=== PATIENT | female | born 1955 | race Caucasian/White ===

== ENCOUNTER 2017-05-23 12:30 | Emergency (ER) | payer OTHER ==
[~2017-05-23] VITALS: Ht 157.5 cm; Wt 74.8 kg
[~2017-05-23 12:30] MED LIST: MELO7.5T12; SERT25TA PO
[2017-05-23] MEDS ORDERED: predniSONE 50 MG TABLET PO ONE (13:15)
--- NOTE | 2017-05-23 13:56 | NUR ---
Patient discharged to home in stable conditon. Written and verbal after care instructions given to patient and spouse. Patient and family verbalized understanding of instructions.
[2017-05-23] MEDS ORDERED: predniSONE 50 MG TABLET ONE (14:05)
== END 2017-05-23 13:57 | disposition home or self-care (01) ==
LOC: ER 12:30
DX: J45.909 Unspecified asthma, uncomplicated (principal); J11.1 Influenza due to unidentified influenza virus with other respiratory manifestations
CPT/HCPCS: 71045; A4663; J7512

== ENCOUNTER 2018-02-15 06:13 | Inpatient (IN) | payer OTHER ==
[~2018-02-15] VITALS: Ht 157.5 cm; Wt 77.1 kg
[2018-02-15] MEDS ORDERED: ALBUTEROL SULF (06:26)
[2018-02-15] MEDS ORDERED: ONDANSETRON 4 MG/2 ML VIAL IV ONE (06:30)
[2018-02-15] MEDS ORDERED: IV NORMAL SALINE 1000 ML BAG IV ONE (06:30)
[2018-02-15] MEDS ORDERED: MORPHINE SULFATE 2 MG/1 ML DISP.SYRIN IV ONE (06:30)
[2018-02-15] MEDS ORDERED: MORPHINE SULFATE 4 MG/1 ML DISP.SYRIN ONE (06:37)
[2018-02-15] MEDS ORDERED: ONDANSETRON 4 MG/2 ML VIAL ONE (06:37)
[2018-02-15 06:52] LABS: BASOPHILS # (AUTO) 0.1 K/uL (0.0-8.0); BASOPHILS % (AUTO) 0.9 % (0.0-2.0); EOSINOPHILS # (AUTO) 0.1 K/uL (0.0-0.7); EOSINOPHILS % (AUTO) 1.2 % (0.0-7.0); HEMATOCRIT 42.2 % (31.2-41.9); LYMPHOCYTES # (AUTO) 4.3 K/uL (20.0-40.0); LYMPHOCYTES % (AUTO) 48.4 % (20.5-51.5); MEAN CORPUSCULAR HEMOGLOBIN 28.7 uug (24.7-32.8); MEAN CORPUSCULAR HGB CONC 33 g/dL (32.3-35.6); MEAN CORPUSCULAR VOLUME 86.6 fL (75.5-95.3); MONOCYTES # (AUTO) 0.5 K/uL (2.0-10.0); MONOCYTES % (AUTO) 6.1 % (0.0-11.0); NEUTROPHILS # (AUTO) 3.8 K/uL (1.8-8.9); NEUTROPHILS % (AUTO) 43.4 % (38.5-71.5); PLATELET COUNT (AUTO) 385 K/uL (179-408); RED BLOOD CELL COUNT(AUTO) 4.87 MIL/uL (3.63-4.92); WHITE BLOOD COUNT (AUTO) 8.9 K/uL (3.8-11.8)
[2018-02-15 06:54] LABS: POTASSIUM 3.9 mmol/L (3.5-5.1)
[2018-02-15 07:06] LABS: BILIRUBIN,DIRECT 0.1 mg/dL (0.0-0.2); BILIRUBIN,TOTAL 0.4 mg/dL (0.2-1.0)
[2018-02-15] MEDS ORDERED: KETOROLAC TROMETHAMINE 30 MG INJ ONE ×2 (07:06→09:35)
[2018-02-15] MEDS ORDERED: HYDROMORPHONE 2 MG/1 ML DISP.SYRIN ONE ×2 (07:06→09:34)
[2018-02-15] MEDS ORDERED: HYDROMORPHONE 1 MG/1 ML DISP.SYRIN IV ONE ×2 (07:15→09:30)
[2018-02-15] MEDS ORDERED: KETOROLAC TROMETHAMINE 30 MG INJ IVP ONE (07:15)
[2018-02-15] MEDS ORDERED: TAMSULOSIN HCL 0.4 MG CAP.SR.24H PO ONE (08:45)
[2018-02-15 08:49] LABS: *BILIRUBIN,URIN NEGATIVE (NEGATIVE); *BLOOD, URINE 3+ (NEGATIVE); *CLARITY,URINE CLEAR (CLEAR); *COLOR,URINE YELLOW (YELLOW); *KETONES,URINE NEGATIVE (NEGATIVE); *PROTEIN,URINE NEGATIVE (NEGATIVE); *UROBILINOGEN,URINE 0.2 E.U./dl (NORMAL); LEUKOCYTE ESTERASE ,URINE 1+ (NEGATIVE); NITRITE, URINE NEGATIVE (NEGATIVE); UGLUCOSE NEGATIVE (NEGATIVE)
[2018-02-15] MEDS ORDERED: TAMSULOSIN HCL 0.4 MG CAP.SR.24H ONE (08:51)
[2018-02-15 08:57] LABS: RBC,URINE 20-50 /HPF (0-3)
[2018-02-15 09:13] LABS: BACTERIA,URINE FEW /HPF (NONE SEEN); SQUAMOUS EPITHELIAL CELL,UR FEW /HPF (NONE SEEN)
[2018-02-15 09:14] LABS: MUCUS,URINE FEW /LPF (0-FEW)
[2018-02-15] MEDS ORDERED: KETOROLAC TROMETHAMINE 15 MG INJ IV ONE (09:30)
[2018-02-15] MEDS ORDERED: CEFTRIAXONE 1 G in IV DEXTROSE 5% 50 ML IV ONE (09:30)
[2018-02-15] MEDS ORDERED: CEFTRIAXONE 1 G VIAL ONE (09:34)
[2018-02-15 10:57] VITALS: BP 123/61
[2018-02-15] MEDS ORDERED: KETOROLAC TROMETHAMINE 15 MG INJ IVP PRN (13:30)
[2018-02-15] MEDS ORDERED: MAGNESIUM HYDROXIDE 30 ML LIQUID UDC PO PRN (13:30)
[2018-02-15] MEDS ORDERED: Z GUARD REMEDY PASTE 57 GM TUBE TOP PRN (13:30)
[2018-02-15] MEDS ORDERED: ONDANSETRON 4 MG/2 ML VIAL IV PRN (13:30)
[2018-02-15] MEDS ORDERED: HYDROCODONE/APAP 5-325MG TABLET PO PRN (13:30)
[2018-02-15] MEDS ORDERED: ACETAMINOPHEN 325 MG TABLET PO PRN (13:30)
[2018-02-15] MEDS ORDERED: ZOLPIDEM 5 MG TABLET PO PRN (13:30)
[2018-02-15] MEDS ORDERED: MELOXICAM 7.5 MG TABLET PO SCH (14:00)
[2018-02-15] MEDS: SERTRALINE HCL 100 MG TABLET PO SCH (14:18)
[2018-02-15] MEDS: IV NS 1000 ML 1,000 ML IV PRN (14:19)
[2018-02-15] MEDS: LOSARTAN POTASSIUM 25 MG TABLET PO SCH (14:19)
[2018-02-15 15:41] VITALS: BP 104/61
[2018-02-15 20:32] VITALS: BP 137/67
[2018-02-15] MEDS: TAMSULOSIN HCL 0.4 MG CAP.SR.24H PO SCH (20:43)
[2018-02-15] MEDS ORDERED: ENOXAPARIN SODIUM 40 MG/0.4 ML DISP.SYRIN SQ SCH (21:00)
[2018-02-15] MEDS: KETOROLAC TROMETHAMINE 15 MG INJ IVP SCH (22:37)
[2018-02-16 04:00] VITALS: BP 130/66
[2018-02-16] MEDS: IV NS 1000 ML 1,000 ML IV PRN (04:13)
[2018-02-16] MEDS ORDERED: CEFTRIAXONE 1 G VIAL IM SCH ×2 (07:00→09:00)
[2018-02-16 07:34] LABS: BASOPHILS % (AUTO) 0.3 % (0.0-2.0); EOSINOPHILS # (AUTO) 0.1 K/uL (0.0-0.7); LYMPHOCYTES # (AUTO) 2.6 K/uL (20.0-40.0); LYMPHOCYTES % (AUTO) 32.3 % (20.5-51.5); MEAN CORPUSCULAR HEMOGLOBIN 29.2 uug (24.7-32.8); MEAN CORPUSCULAR HGB CONC 34 g/dL (32.3-35.6); MEAN CORPUSCULAR VOLUME 86.5 fL (75.5-95.3); MONOCYTES # (AUTO) 0.6 K/uL (2.0-10.0); MONOCYTES % (AUTO) 7.4 % (0.0-11.0); NEUTROPHILS # (AUTO) 4.7 K/uL (1.8-8.9); RED BLOOD CELL COUNT(AUTO) 4.16 MIL/uL (3.63-4.92); WHITE BLOOD COUNT (AUTO) 7.9 K/uL (3.8-11.8)
[2018-02-16 07:43] LABS: CREATININE 0.9 mg/dL (0.6-1.3); MAGNESIUM 1.9 mg/dL (1.8-2.4); POTASSIUM 4.3 mmol/L (3.5-5.1)
[2018-02-16 07:47] LABS: HEMOGLOBIN 12.1 g/dL (10.9-14.3); PLATELET COUNT (AUTO) 273 K/uL (179-408)
[2018-02-16] MEDS: LOSARTAN POTASSIUM 25 MG TABLET PO SCH (08:35)
[2018-02-16] MEDS: TAMSULOSIN HCL 0.4 MG CAP.SR.24H PO SCH (08:35)
[2018-02-16] MEDS: SERTRALINE HCL 100 MG TABLET PO SCH (08:35)
[2018-02-16] MEDS: KETOROLAC TROMETHAMINE 15 MG INJ IVP SCH ×2 (08:36→13:11)
[2018-02-16] MEDS ORDERED: MELOXICAM 7.5 MG TABLET PO SCH ×2 (09:00)
[2018-02-16] MEDS ORDERED: CEFTRIAXONE 1 G in IV DEXTROSE 5% 50 ML IV SCH ×2 (10:00)
[2018-02-16 11:24] VITALS: BP 122/50
[2018-02-16] MEDS ORDERED: ATOR10TA PO (13:32)
[2018-02-16] MEDS ORDERED: CEPH500C2 PO (13:32)
[2018-02-16] MEDS ORDERED: ONDA4TAB8 PO (13:32)
== END 2018-02-16 14:30 | disposition home or self-care (01) | DRG 465 ==
LOC: ER 06:16 → MED 10:09
PROVIDERS: ADMIT Nurse Practitioner Acute Care; ATTEND Nurse Practitioner Acute Care
DX: N13.2 Hydronephrosis with renal and ureteral calculous obstruction (principal); D68.59 Other primary thrombophilia; E66.01 Morbid (severe) obesity due to excess calories; Z80.1 Family history of malignant neoplasm of trachea, bronchus and lung; Z80.3 Family history of malignant neoplasm of breast; Z96.652 Presence of left artificial knee joint; Z68.31 Body mass index [BMI] 31.0-31.9, adult; E86.0 Dehydration; N39.0 Urinary tract infection, site not specified; K57.30 Diverticulosis of large intestine without perforation or abscess without bleeding; K44.9 Diaphragmatic hernia without obstruction or gangrene; I10 Essential (primary) hypertension; E89.0 Postprocedural hypothyroidism; R79.89 Other specified abnormal findings of blood chemistry; R74.0 Nonspecific elevation of levels of transaminase and lactic acid dehydrogenase [LDH]; Z71.3 Dietary counseling and surveillance; M19.90 Unspecified osteoarthritis, unspecified site
CPT/HCPCS: 36415; 71045; 82360; 83690; 83735; 84100; 85025; 85730; 87077; 87086; 93005; A4663; J0696; J1170; J1650; J1885; J2270; J2405; J7030; J7060

== ENCOUNTER 2018-08-21 15:11 | Emergency (ER) | payer MEDICARE, OTHER ==
[~2018-08-21] VITALS: Ht 157.5 cm; Wt 75.7 kg
[~2018-08-21 15:11] MED LIST changes: +ALBUTEROL SULF; +ATOR10TA PO; +CEPH500C2 PO; +ONDA4TAB8 PO
--- NOTE | 2018-08-21 15:33 | NUR ---
MSE DONE BY DR PAULINO AT BEDSIDE.
[2018-08-21] MEDS ORDERED: DEXAMETHASONE SOD PHOSPHATE 10 MG INJ ONE (15:42)
[2018-08-21] MEDS ORDERED: DEXAMETHASONE SOD PHOSPHATE 4 MG INJ IM ONE (15:45)
--- NOTE | 2018-08-21 15:51 | NUR ---
Patient discharged to home in stable conditon. Written and verbal after care instructions given. Patient verbalizes understanding of instructions.
[2018-08-21 15:52] VITALS: BP 128/70
== END 2018-08-21 15:54 | disposition home or self-care (01) ==
LOC: ER 15:14
DX: L50.9 Urticaria, unspecified (principal); Z79.899 Other long term (current) drug therapy; Z90.89 Acquired absence of other organs
CPT/HCPCS: 96372; 99283; J1100; A4663

== ENCOUNTER 2018-08-30 19:36 | Inpatient (IN) | payer MEDICARE, OTHER ==
[~2018-08-30] VITALS: Ht 157.5 cm; Wt 72.6 kg
[2018-08-30 20:39] LABS: BASOPHILS # (AUTO) 0.1 K/uL (0.0-8.0); BASOPHILS % (AUTO) 0.5 % (0.0-2.0); EOSINOPHILS # (AUTO) 0.1 K/uL (0.0-0.7); EOSINOPHILS % (AUTO) 0.9 % (0.0-7.0); HEMATOCRIT 38.7 % (31.2-41.9); LYMPHOCYTES # (AUTO) 2.6 K/uL (20.0-40.0); LYMPHOCYTES % (AUTO) 26.9 % (20.5-51.5); MEAN CORPUSCULAR HGB CONC 34 g/dL (32.3-35.6); MEAN CORPUSCULAR VOLUME 86.6 fL (75.5-95.3); MONOCYTES # (AUTO) 0.9 K/uL (2.0-10.0); MONOCYTES % (AUTO) 9.1 % (0.0-11.0); NEUTROPHILS # (AUTO) 6.1 K/uL (1.8-8.9); NEUTROPHILS % (AUTO) 62.6 % (38.5-71.5); PLATELET COUNT (AUTO) 332 K/uL (179-408); RED BLOOD CELL COUNT(AUTO) 4.48 MIL/uL (3.63-4.92); WHITE BLOOD COUNT (AUTO) 9.7 K/uL (3.8-11.8)
[2018-08-30 20:48] LABS: CREATININE 0.9 mg/dL (0.6-1.3); POTASSIUM 3.8 mmol/L (3.5-5.1)
[2018-08-30 20:53] LABS: BILIRUBIN,DIRECT 5.9 mg/dL (0.0-0.2); BILIRUBIN,TOTAL 6.7 mg/dL (0.2-1.0); TOTAL PROTEIN, SERUM 7.3 g/dL (6.4-8.2)
[2018-08-30] MEDS ORDERED: IV NORMAL SALINE 1000 ML BAG IV ONE (21:00)
[2018-08-30] MEDS ORDERED: NORMAL SALINE FLUSH 10 ML DISP.SYRIN ONE (21:34)
[2018-08-30] MEDS ORDERED: SWABABLE VALVE TRANSFER SET EA MC ONE (21:34)
[2018-08-30] MEDS ORDERED: IOHEXOL 300MG/ML 100 ML INFUS..BTL ONE (21:34)
[2018-08-30] MEDS ORDERED: IV NORMAL SALINE 250 ML IV ONE (21:34)
[2018-08-30 21:45] LABS: *BILIRUBIN,URIN 3+ (NEGATIVE); *CLARITY,URINE CLEAR (CLEAR); *COLOR,URINE DARK YELLOW (YELLOW); *KETONES,URINE TRACE (NEGATIVE); *UROBILINOGEN,URINE 0.2 E.U./dl (NORMAL); LEUKOCYTE ESTERASE ,URINE TRACE (NEGATIVE); NITRITE, URINE NEGATIVE (NEGATIVE); PH,URINE 5.5 (5.0-8.0); UGLUCOSE NEGATIVE (NEGATIVE)
[2018-08-30 21:49] LABS: *BLOOD, URINE TRACE (NEGATIVE)
[2018-08-30 22:03] LABS: BACTERIA,URINE FEW /HPF (NONE SEEN); MUCUS,URINE FEW /LPF (0-FEW); SQUAMOUS EPITHELIAL CELL,UR FEW /HPF (NONE SEEN)
[2018-08-30] MEDS ORDERED: SERT50TA PO (23:21)
[2018-08-30] MEDS ORDERED: ACET-1467 PO (23:21)
[2018-08-30] MEDS ORDERED: ENAL2.5T PO (23:21)
[2018-08-30] MEDS ORDERED: ATOR20TA PO (23:21)
[2018-08-31] MEDS ORDERED: ACETAMINOPHEN 325 MG TABLET PO PRN ×2 (00:45→00:48)
[2018-08-31] MEDS ORDERED: HYDROCODONE/APAP 5-325MG TABLET PO PRN ×2 (00:45→00:49)
[2018-08-31] MEDS ORDERED: MAGNESIUM HYDROXIDE 30 ML LIQUID UDC PO PRN ×2 (00:45→00:49)
[2018-08-31] MEDS ORDERED: Z GUARD REMEDY PASTE 57 GM TUBE TOP PRN (00:45)
[2018-08-31] MEDS ORDERED: MORPHINE SULFATE 2 MG/1 ML DISP.SYRIN IV PRN (00:45)
[2018-08-31] MEDS ORDERED: ONDANSETRON 4 MG/2 ML VIAL IV PRN (00:45)
[2018-08-31] MEDS ORDERED: ZOLPIDEM 5 MG TABLET PO PRN (00:45)
[2018-08-31 00:56] VITALS: BP 163/68
[2018-08-31] MEDS ORDERED: IV NS 1000 ML 1,000 ML IV PRN (01:00)
[2018-08-31] MEDS: diphenhydrAMINE 25 MG CAP PO PRN ×2 (04:00→10:00)
[2018-08-31 06:05] VITALS: BP 144/73
[2018-08-31 06:52] LABS: CREATININE 0.7 mg/dL (0.6-1.3); MAGNESIUM 1.6 mg/dL (1.8-2.4); PHOSPHOROUS 3.3 mg/dL (2.5-4.9)
[2018-08-31 06:54] LABS: BASOPHILS % (AUTO) 0.6 % (0.0-2.0); EOSINOPHILS # (AUTO) 0.1 K/uL (0.0-0.7); EOSINOPHILS % (AUTO) 1.3 % (0.0-7.0); HEMATOCRIT 37.2 % (31.2-41.9); HEMOGLOBIN 12.5 g/dL (10.9-14.3); LYMPHOCYTES # (AUTO) 2.2 K/uL (20.0-40.0); LYMPHOCYTES % (AUTO) 25.3 % (20.5-51.5); MEAN CORPUSCULAR HEMOGLOBIN 29.1 uug (24.7-32.8); MEAN CORPUSCULAR HGB CONC 34 g/dL (32.3-35.6); MEAN CORPUSCULAR VOLUME 86.7 fL (75.5-95.3); MONOCYTES # (AUTO) 0.8 K/uL (2.0-10.0); MONOCYTES % (AUTO) 8.8 % (0.0-11.0); NEUTROPHILS # (AUTO) 5.5 K/uL (1.8-8.9); PLATELET COUNT (AUTO) 304 K/uL (179-408); RED BLOOD CELL COUNT(AUTO) 4.29 MIL/uL (3.63-4.92); WHITE BLOOD COUNT (AUTO) 8.6 K/uL (3.8-11.8)
[2018-08-31] MEDS ORDERED: ACETAMINOPHEN 650 MG SUPP.RECT RC PRN (10:30)
[2018-08-31] MEDS: MAGNESIUM SULFATE/D5W 100 ML IV SCH ×2 (11:01→13:31)
[2018-08-31] MEDS: IV D5 1/2 NS 1000 ML 1,000 ML IV PRN (11:10)
[2018-08-31 11:43] LABS: BILIRUBIN,DIRECT 5.3 mg/dL (0.0-0.2); BILIRUBIN,TOTAL 6.3 mg/dL (0.2-1.0); TOTAL PROTEIN, SERUM 6.6 g/dL (6.4-8.2)
[2018-08-31 11:48] VITALS: BP 150/86
[2018-08-31] MEDS: diphenhydrAMINE 50 MG/1 ML VIAL IV PRN ×4 (12:20→23:39)
[2018-08-31] MEDS ORDERED: SIMV20TA2 PO (14:27)
[2018-08-31] MEDS ORDERED: DEXL60CA3 PO (14:28)
[2018-08-31] MEDS: PANTOPRAZOLE SODIUM 40 MG VIAL IV SCH (15:39)
[2018-08-31 16:00] VITALS: BP 132/62
[2018-08-31] MEDS ORDERED: LORAZEPAM 2 MG/1 ML VIAL IV PRN (18:30)
[2018-08-31] MEDS ORDERED: diphenhydrAMINE 50 MG/1 ML VIAL IV ONE (18:45)
[2018-08-31 19:27] VITALS: BP 141/99
[2018-09-01 03:30] VITALS: BP 127/79
[2018-09-01 07:50] LABS: BASOPHILS % (AUTO) 0.6 % (0.0-2.0); EOSINOPHILS # (AUTO) 0.1 K/uL (0.0-0.7); EOSINOPHILS % (AUTO) 1.3 % (0.0-7.0); HEMATOCRIT 38.8 % (31.2-41.9); HEMOGLOBIN 12.9 g/dL (10.9-14.3); LYMPHOCYTES # (AUTO) 1.9 K/uL (20.0-40.0); LYMPHOCYTES % (AUTO) 24.9 % (20.5-51.5); MEAN CORPUSCULAR HEMOGLOBIN 28.6 uug (24.7-32.8); MEAN CORPUSCULAR HGB CONC 33 g/dL (32.3-35.6); MEAN CORPUSCULAR VOLUME 86.3 fL (75.5-95.3); MONOCYTES # (AUTO) 0.7 K/uL (2.0-10.0); MONOCYTES % (AUTO) 9.2 % (0.0-11.0); NEUTROPHILS # (AUTO) 4.8 K/uL (1.8-8.9); PLATELET COUNT (AUTO) 317 K/uL (179-408); RED BLOOD CELL COUNT(AUTO) 4.49 MIL/uL (3.63-4.92); WHITE BLOOD COUNT (AUTO) 7.5 K/uL (3.8-11.8)
[2018-09-01 08:03] LABS: CHOLESTEROL 254 mg/dL (<200); TRIGLYCERIDES 393 MG/DL (30-150)
[2018-09-01 08:06] LABS: HEPATITIS A AB, IgM Negative (Negative); HEPATITIS A AB, TOTAL Positive (Negative); HEPATITIS B SURFACE AB Non Reactive (.); HEPATITIS B SURFACE AG Negative (Negative)
[2018-09-01 08:07] LABS: BILIRUBIN,TOTAL 8.6 mg/dL (0.2-1.0); CREATININE 0.7 mg/dL (0.6-1.3); MAGNESIUM 1.9 mg/dL (1.8-2.4); PHOSPHOROUS 3.5 mg/dL (2.5-4.9); POTASSIUM 3.7 mmol/L (3.5-5.1); TOTAL PROTEIN, SERUM 6.9 g/dL (6.4-8.2)
[2018-09-01] MEDS: diphenhydrAMINE 50 MG/1 ML VIAL IV PRN ×3 (08:17→22:31)
[2018-09-01] MEDS: PANTOPRAZOLE SODIUM 40 MG VIAL IV SCH (08:17)
[2018-09-01] MEDS: IV D5 1/2 NS 1000 ML 1,000 ML IV PRN (08:18)
[2018-09-01 08:59] LABS: HDL CHOLESTEROL < 10 mg/dL (40-60)
[2018-09-01 11:50] VITALS: BP 146/86
[2018-09-01 16:00] VITALS: BP 140/76
[2018-09-01] MEDS ORDERED: DIPH50VI15 IV (18:52)
[2018-09-01] MEDS ORDERED: PANT40VI IV (18:52)
[2018-09-01] MEDS ORDERED: ACET650S24 RC (18:52)
[2018-09-01] MEDS ORDERED: ONDA4VIA23 IV (18:52)
[2018-09-01] MEDS ORDERED: Morphine Sulfate Inj IV (18:52)
[2018-09-01 19:34] VITALS: BP 140/74
[2018-09-02 05:06] LABS: HEPATITIS Be ANTIGEN Negative (Negative)
[2018-09-02 08:06] LABS: AFP, TUMOR MARKER 4.2 ng/mL (0.0-8.3)
== END 2018-09-01 23:29 | disposition short-term general hospital (02) | DRG 444 ==
LOC: ER 19:36 → TELE3 23:50 → MEDSURG3 08-31 00:15
PROVIDERS: ADMIT Nurse Practitioner Acute Care; ATTEND Internal Medicine
DX: K83.1 Obstruction of bile duct (principal); K72.00 Acute and subacute hepatic failure without coma; N39.0 Urinary tract infection, site not specified; R59.0 Localized enlarged lymph nodes; K21.9 Gastro-esophageal reflux disease without esophagitis; E89.0 Postprocedural hypothyroidism; E66.9 Obesity, unspecified; Z68.29 Body mass index [BMI] 29.0-29.9, adult; Z87.442 Personal history of urinary calculi; E78.5 Hyperlipidemia, unspecified; E83.42 Hypomagnesemia; I10 Essential (primary) hypertension; Z96.652 Presence of left artificial knee joint; Z80.3 Family history of malignant neoplasm of breast; Z80.1 Family history of malignant neoplasm of trachea, bronchus and lung; Z79.899 Other long term (current) drug therapy; K86.89 Other specified diseases of pancreas; E11.65 Type 2 diabetes mellitus with hyperglycemia; L29.9 Pruritus, unspecified
CPT/HCPCS: 36415; 71045; 74181; 82105; 82378; 83690; 83735; 84100; 85025; 85730; 86301; 86644; 86645; 86704; 86705; 86706; 86708; 86709; 86803; 87340; 87350; A4663; C9113; G0378; J1200; J2060; J3475; J3490; J7030; J7040; J7050; Q0163; Q9967

== ENCOUNTER 2018-11-06 23:50 | Inpatient (IN) | payer MEDICARE, OTHER ==
[~2018-11-06] VITALS: Ht 157.5 cm; Wt 65.8 kg
[~2018-11-06 23:50] MED LIST changes: +ACET650S24 RC; -ALBUTEROL SULF; -ATOR10TA PO; -CEPH500C2 PO; +DIPH50VI15 IV; -MELO7.5T12; +Morphine Sulfate Inj IV; -ONDA4TAB8 PO; +ONDA4VIA23 IV; +PANT40VI IV; -SERT25TA PO
[2018-11-07] MEDS ORDERED: CEFTRIAXONE 1 G in IV DEXTROSE 5% 50 ML IV ONE (01:15)
[2018-11-07] MEDS ORDERED: IV NORMAL SALINE 1000 ML BAG IV ONE (01:15)
[2018-11-07] MEDS ORDERED: ACETAMINOPHEN ES 500 MG TABLET PO ONE (01:15)
[2018-11-07 01:35] LABS: *BILIRUBIN,URIN 1+ (NEGATIVE); *CLARITY,URINE CLOUDY (CLEAR); *COLOR,URINE AMBER (YELLOW); *KETONES,URINE NEGATIVE (NEGATIVE); LEUKOCYTE ESTERASE ,URINE TRACE (NEGATIVE); NITRITE, URINE NEGATIVE (NEGATIVE); UGLUCOSE NEGATIVE (NEGATIVE)
[2018-11-07 01:38] LABS: BASOPHILS % (AUTO) 1.5 % (0.0-2.0); EOSINOPHILS % (AUTO) 0.2 % (0.0-7.0); HEMATOCRIT 35.7 % (31.2-41.9); HEMOGLOBIN 11.9 g/dL (10.9-14.3); LYMPHOCYTES # (AUTO) 0.4 K/uL (20.0-40.0); LYMPHOCYTES % (AUTO) 18.6 % (20.5-51.5); MEAN CORPUSCULAR HEMOGLOBIN 28.1 uug (24.7-32.8); MEAN CORPUSCULAR HGB CONC 33 g/dL (32.3-35.6); MEAN CORPUSCULAR VOLUME 84.4 fL (75.5-95.3); MONOCYTES # (AUTO) 0.1 K/uL (2.0-10.0); MONOCYTES % (AUTO) 4.8 % (0.0-11.0); NEUTROPHILS # (AUTO) 1.4 K/uL (1.8-8.9); NEUTROPHILS % (AUTO) 74.9 % (38.5-71.5); PLATELET COUNT (AUTO) 221 K/uL (179-408); RED BLOOD CELL COUNT(AUTO) 4.22 MIL/uL (3.63-4.92)
[2018-11-07 01:39] LABS: *BLOOD, URINE TRACE (NEGATIVE)
[2018-11-07 01:42] LABS: BACTERIA,URINE NONE SEEN /HPF (NONE SEEN); SQUAMOUS EPITHELIAL CELL,UR FEW /HPF (NONE SEEN); URINE AMORPHOUS URATE MANY /HPF
[2018-11-07 01:43] LABS: CREATININE 0.9 mg/dL (0.6-1.3); POTASSIUM 3.9 mmol/L (3.5-5.1)
[2018-11-07 01:45] LABS: WHITE BLOOD COUNT (AUTO) 1.9 K/uL (3.8-11.8)
[2018-11-07] MEDS ORDERED: CEFTRIAXONE 1 G VIAL ONE (01:45)
[2018-11-07] MEDS ORDERED: ACETAMINOPHEN ES 500 MG TABLET ONE (01:45)
[2018-11-07 01:55] LABS: BILIRUBIN,DIRECT 0.8 mg/dL (0.0-0.2); BILIRUBIN,TOTAL 1.2 mg/dL (0.2-1.0); TOTAL PROTEIN, SERUM 7.6 g/dL (6.4-8.2)
--- NOTE | 2018-11-07 02:02 | NUR ---
Called for tele bed, spoke w/ Em lazcano. to go into 305
--- NOTE | 2018-11-07 02:03 | NUR ---
Called [facility] for panel call - awaiting call back from Bell Gómez
[2018-11-07] MEDS ORDERED: ONDANSETRON 4 MG/2 ML VIAL IV PRN (02:15)
[2018-11-07] MEDS ORDERED: HYDROCODONE/APAP 5-325MG TABLET PO PRN (02:15)
[2018-11-07] MEDS ORDERED: MAGNESIUM HYDROXIDE 30 ML LIQUID UDC PO PRN (02:15)
[2018-11-07] MEDS ORDERED: ACETAMINOPHEN 325 MG TABLET PO PRN (02:15)
[2018-11-07] MEDS ORDERED: SERT50TA PO (02:19)
[2018-11-07] MEDS ORDERED: MELO7.5T12 PO (02:19)
[2018-11-07] MEDS ORDERED: OXYC5TAB3 PO (02:24)
--- NOTE | 2018-11-07 02:28 | NUR ---
Gave report to Berto
--- NOTE | 2018-11-07 02:57 | NUR ---
Pt. resting in bed, IV fluids infusing, no s/s infiltration/phlebitis,
[2018-11-07] MEDS: IV NS 1000 ML 1,000 ML IV PRN ×2 (03:50→20:20)
[2018-11-07 03:57] VITALS: BP 100/56
--- NOTE | 2018-11-07 04:02 | NUR ---
Pt. taken off unit via stretcher for admit to tele. 305, NAD, IV patent - no s/s infiltration/phlebitis, al belongings w/ pt.,
[2018-11-07 04:08] LABS: BASOPHILS % (AUTO) 0.4 % (0.0-2.0); EOSINOPHILS % (AUTO) 0.1 % (0.0-7.0); HEMATOCRIT 32.4 % (31.2-41.9); HEMOGLOBIN 10.8 g/dL (10.9-14.3); LYMPHOCYTES # (AUTO) 0.3 K/uL (20.0-40.0); LYMPHOCYTES % (AUTO) 8.5 % (20.5-51.5); MEAN CORPUSCULAR HEMOGLOBIN 28.4 uug (24.7-32.8); MEAN CORPUSCULAR HGB CONC 33 g/dL (32.3-35.6); MEAN CORPUSCULAR VOLUME 85.5 fL (75.5-95.3); MONOCYTES # (AUTO) 0.2 K/uL (2.0-10.0); MONOCYTES % (AUTO) 5.4 % (0.0-11.0); NEUTROPHILS # (AUTO) 3.1 K/uL (1.8-8.9); NEUTROPHILS % (AUTO) 85.6 % (38.5-71.5); PLATELET COUNT (AUTO) 172 K/uL (179-408); RED BLOOD CELL COUNT(AUTO) 3.79 MIL/uL (3.63-4.92); WHITE BLOOD COUNT (AUTO) 3.6 K/uL (3.8-11.8)
[2018-11-07 04:16] LABS: CREATININE 0.8 mg/dL (0.6-1.3); MAGNESIUM 1.3 mg/dL (1.8-2.4); PHOSPHOROUS 2.3 mg/dL (2.5-4.9); POTASSIUM 3.8 mmol/L (3.5-5.1)
--- NOTE | 2018-11-07 07:12 | NUR ---
Admitted to room 305; AAOx4; ambulatory; afebrile; IVF started; last Lactic acid 1.4; needs attended; endorsed to Nurse Swan for continuity of care.
--- NOTE | 2018-11-07 07:30 | NUR ---
RECEIVED PATIENT IN BED, ASLEEP, EASY TO WAKE UP, AOX4. DENIES PAIN OR SOB AT THIS TIME. RT. FA NS AT 75CC/HR AND INTACT. SAFETY AND FALL PREVENTION IN PLACE. BED LOCKED AND IN LOW POSITION. CALL LIGHT IN REACH. WILL CONTINUE TO MONITOR.
[2018-11-07] MEDS: MAGNESIUM SULFATE/D5W 100 ML IV SCH ×2 (10:02→11:08)
[2018-11-07] MEDS ORDERED: LORA1TAB PO (11:01)
[2018-11-07 11:03] VITALS: BP 135/55
[2018-11-07] MEDS: IBUPROFEN 600 MG TABLET PO PRN ×2 (11:08→17:46)
[2018-11-07] MEDS ORDERED: DEXL60CA3 PO (11:25)
[2018-11-07] MEDS: OXYCODONE HCL 5 MG TABLET PO PRN (12:40)
[2018-11-07] MEDS: PANTOPRAZOLE SODIUM 40 MG TABLET.DR PO SCH (12:52)
[2018-11-07] MEDS: SERTRALINE HCL 50 MG TABLET PO SCH (12:52)
[2018-11-07] MEDS: MELOXICAM 7.5 MG TABLET PO SCH (12:52)
[2018-11-07 15:00] VITALS: BP 124/73
[2018-11-07] MEDS ORDERED: NEUTRA PHOS PACKET PO ONE (16:45)
--- NOTE | 2018-11-07 19:15 | NUR ---
PATIENT STABLE THROUGHOUT THE SHIFT. COMPLIANT WITH ALL CARE. RT. FA IV INTACT. WILL GIVE REPORT TO ONCOMING SHIFT.
--- NOTE | 2018-11-07 19:30 | NUR ---
patient received lying in bed with family at bedside. a/o x4. iv intact and patent. no signs of acute distress. safety and comfort measures provided. will continue care.
[2018-11-07 20:06] VITALS: BP 102/52
[2018-11-07] MEDS ORDERED: CEFTRIAXONE 1 G in IV DEXTROSE 5% 50 ML IV SCH (21:00)
[2018-11-07] MEDS: LORAZEPAM 1 MG TABLET PO PRN ×2 (21:37→22:51)
--- NOTE | 2018-11-07 22:51 | NUR ---
c/o of agitation and anxiety. administered ativan PO. tolerated well.
--- NOTE | 2018-11-08 05:26 | NUR ---
patient slept intermittently. a/ox4. no signs of acute distress. v/s stable. iv intact and patent. safety and comfort measures provided. all medication administered and tolerated well. will endorse care to morning nurse.
[2018-11-08] MEDS: PANTOPRAZOLE SODIUM 40 MG TABLET.DR PO SCH (06:07)
[2018-11-08 06:14] VITALS: BP 135/79
[2018-11-08] MEDS ORDERED: IBUPROFEN 600 MG TABLET PO PRN (07:15)
[2018-11-08] MEDS: IV NS 1000 ML 1,000 ML IV PRN (10:13)
[2018-11-08] MEDS: SERTRALINE HCL 50 MG TABLET PO SCH (10:14)
[2018-11-08] MEDS: MELOXICAM 7.5 MG TABLET PO SCH (10:14)
[2018-11-08 12:00] VITALS: BP 135/75
[2018-11-08] MEDS: OXYCODONE HCL 5 MG TABLET PO PRN (13:06)
[2018-11-08 15:43] VITALS: BP 128/67
== END 2018-11-08 18:18 | disposition home or self-care (01) | DRG 872 ==
LOC: ER 23:51 → TELE3 11-07 03:21 → MEDSURG3 11-07 08:45
PROVIDERS: ADMIT Nurse Practitioner Acute Care; ATTEND Internal Medicine
DX: A41.9 Sepsis, unspecified organism (principal); C22.1 Intrahepatic bile duct carcinoma; E87.2 Acidosis; N39.0 Urinary tract infection, site not specified; E11.9 Type 2 diabetes mellitus without complications; E89.0 Postprocedural hypothyroidism; Z96.652 Presence of left artificial knee joint; Z80.1 Family history of malignant neoplasm of trachea, bronchus and lung; Z80.3 Family history of malignant neoplasm of breast; E83.42 Hypomagnesemia; M19.90 Unspecified osteoarthritis, unspecified site; E66.9 Obesity, unspecified; Z68.26 Body mass index [BMI] 26.0-26.9, adult; Z92.3 Personal history of irradiation; Z79.899 Other long term (current) drug therapy; I51.9 Heart disease, unspecified; D72.819 Decreased white blood cell count, unspecified
CPT/HCPCS: 36415; 70030-TC; 71045; 83605; 83735; 84100; 85025; 85730; 87040; 87077; 87086; 87400; 93005; A4663; A9150; G0378; J0696; J2405; J3475; J7030; J7060

== ENCOUNTER 2019-01-23 19:19 | Inpatient (IN) | payer MEDICARE, OTHER ==
[~2019-01-23] VITALS: Ht 157.5 cm; Wt 56.7 kg
[~2019-01-23 19:19] MED LIST changes: -ACET650S24 RC; +DEXL60CA3 PO; -DIPH50VI15 IV; +LORA1TAB PO; +MELO7.5T12 PO; -Morphine Sulfate Inj IV; -ONDA4VIA23 IV; +OXYC5TAB3 PO; -PANT40VI IV; +SERT50TA PO
--- NOTE | 2019-01-23 19:40 | NUR ---
Patient ambulated with stable gait. Speech is clear, speak in complete sentences. No neuro deficits. A/Ox4. Patient came for c/o a sore throat and LLQ abdominal pain s/p chemo. Respiratory even and unlabored. Denies any diarrhea but has n/v. Patient in bed at lowest position, sr upx2, call light within reach. Fall precautions implemented per protocol.
[2019-01-23] MEDS ORDERED: IV NORMAL SALINE 1000 ML BAG IV ONE ×2 (20:00→20:45)
[2019-01-23] MEDS ORDERED: ONDANSETRON 4 MG/2 ML VIAL IV ONE (20:00)
[2019-01-23] MEDS ORDERED: MORPHINE SULFATE 2 MG/1 ML DISP.SYRIN IV ONE (20:00)
[2019-01-23] MEDS ORDERED: PANTOPRAZOLE SODIUM 40 MG VIAL IV ONE (20:00)
[2019-01-23] MEDS ORDERED: ONDANSETRON 4 MG/2 ML VIAL ONE (20:10)
[2019-01-23] MEDS ORDERED: MORPHINE SULFATE 4 MG/1 ML DISP.SYRIN ONE ×2 (20:10→21:47)
[2019-01-23] MEDS ORDERED: PANTOPRAZOLE SODIUM 40 MG VIAL ONE (20:11)
[2019-01-23 20:16] LABS: HEMATOCRIT 37.6 % (31.2-41.9); HEMOGLOBIN 12.4 g/dL (10.9-14.3); LYMPHOCYTES # (AUTO) 0.3 K/uL (20.0-40.0); LYMPHOCYTES % (AUTO) 1.9 % (20.5-51.5); MEAN CORPUSCULAR HEMOGLOBIN 27.9 uug (24.7-32.8); MEAN CORPUSCULAR HGB CONC 33 g/dL (32.3-35.6); MEAN CORPUSCULAR VOLUME 84.6 fL (75.5-95.3); MONOCYTES % (AUTO) 5.3 % (0.0-11.0); NEUTROPHILS # (AUTO) 16.9 K/uL (1.8-8.9); NEUTROPHILS % (AUTO) 92.8 % (38.5-71.5); PLATELET COUNT (AUTO) 374 K/uL (179-408); RED BLOOD CELL COUNT(AUTO) 4.44 MIL/uL (3.63-4.92); WHITE BLOOD COUNT (AUTO) 18.3 K/uL (3.8-11.8)
[2019-01-23 20:22] LABS: CREATININE 0.8 mg/dL (0.6-1.3); POTASSIUM 4.2 mmol/L (3.5-5.1)
--- NOTE | 2019-01-23 20:24 | NUR ---
Transferred to CT in stable condition.
[2019-01-23 20:26] LABS: *BILIRUBIN,URIN 2+ (NEGATIVE); *BLOOD, URINE NEGATIVE (NEGATIVE); *COLOR,URINE AMBER (YELLOW); *KETONES,URINE NEGATIVE (NEGATIVE); LEUKOCYTE ESTERASE ,URINE NEGATIVE (NEGATIVE); NITRITE, URINE NEGATIVE (NEGATIVE); PH,URINE 5.5 (5.0-8.0); UGLUCOSE NEGATIVE (NEGATIVE)
[2019-01-23 20:27] LABS: BILIRUBIN,DIRECT 1.8 mg/dL (0.0-0.2); BILIRUBIN,TOTAL 2.3 mg/dL (0.2-1.0); TOTAL PROTEIN, SERUM 7.8 g/dL (6.4-8.2)
[2019-01-23 20:36] LABS: *CLARITY,URINE HAZY (CLEAR)
[2019-01-23 20:38] LABS: BACTERIA,URINE FEW /HPF (NONE SEEN); SQUAMOUS EPITHELIAL CELL,UR MODERATE /HPF (NONE SEEN); WBC,URINE 0-3 /HPF (0-3)
[2019-01-23 20:39] LABS: CALCIUM OXALATE CRYSTALS,UR MODERATE /HPF (NONE SEEN); MUCUS,URINE MANY /LPF (0-FEW)
--- NOTE | 2019-01-23 20:44 | NUR ---
Patient back in room from CT
[2019-01-23] MEDS ORDERED: PIPERACILLIN SODIUM/TAZOBACTAM 3.375 G in IV DEXTROSE 5% 50 ML IV ONE (21:15)
[2019-01-23] MEDS ORDERED: VANCOMYCIN IV 1,000 MG in IV DEXTROSE 5% 250 ML IV ONE (21:15)
[2019-01-23] MEDS ORDERED: METH10TA2 PO (21:16)
[2019-01-23] MEDS ORDERED: ONDA4TAB11 PO (21:16)
[2019-01-23] MEDS ORDERED: ATEN25TA PO (21:16)
[2019-01-23] MEDS ORDERED: ursodiol PO (21:16)
[2019-01-23] MEDS ORDERED: HYDR2TAB4 PO (21:16)
[2019-01-23] MEDS ORDERED: VANCOMYCIN IV 200 ML ONE (21:33)
[2019-01-23] MEDS ORDERED: PIPERACILLIN/TAZOBACTAM/D5W 50 ML IV ONE (21:34)
[2019-01-23] MEDS ORDERED: MORPHINE SULFATE 4 MG/1 ML DISP.SYRIN IV ONE (21:45)
[2019-01-23] MEDS ORDERED: MORPHINE SULFATE 2 MG/1 ML DISP.SYRIN ONE (21:47)
--- NOTE | 2019-01-23 22:13 | NUR ---
Report given to HALIE Paul
--- NOTE | 2019-01-23 22:22 | NUR ---
PERAZA at bedside to speak to patient
--- NOTE | 2019-01-23 22:45 | NUR ---
Called [facility] Transfer [facility] per MD request. Faxed over clinicals & face sheet.
--- NOTE | 2019-01-23 23:09 | NUR ---
Spoke to Mary Cedeno from [facility], she stated that she will be speak to the on-call GI team and call back.
--- NOTE | 2019-01-23 23:26 | NUR ---
SHANELLE Leon called stating that he will be endorsing the patient case to Araceli Gonzalez NP who will be taking over for the admitting team.
--- NOTE | 2019-01-23 23:33 | NUR ---
Called the office of Dr. Spaulding, Oncology, to speak with physician. [employer] Worker provided me with phone number for Dr. Spaulding [phone]
--- NOTE | 2019-01-23 23:35 | NUR ---
GIOVANY on the phone with Dr. Spaulding discussing patient case.
--- NOTE | 2019-01-24 | NUR ---
Dr. Blessing WADDELL returned call from [facility] and is speaking to Dr. Wyman.
--- NOTE | 2019-01-24 00:15 | NUR ---
[facility] called for panel call, Araceli Gonzalez.
--- NOTE | 2019-01-24 00:24 | NUR ---
GIOVANY on the phone with Araceli Gonzalez.
[2019-01-24] MEDS ORDERED: INSULIN REGULAR, HUMAN 300 UNIT/3 ML VIAL SQ PRN (00:30)
[2019-01-24] MEDS ORDERED: DEXTROSE 50% 50 ML DISP.SYRIN IV PRN (00:30)
[2019-01-24] MEDS ORDERED: ACETAMINOPHEN 650 MG SUPP.RECT RC PRN (00:30)
[2019-01-24] MEDS ORDERED: ACETAMINOPHEN 325 MG TABLET PO PRN (00:30)
[2019-01-24] MEDS ORDERED: ONDANSETRON 4 MG/2 ML VIAL IV PRN (00:45)
[2019-01-24] MEDS ORDERED: MORPHINE SULFATE 2 MG/1 ML DISP.SYRIN IV ONE (00:45)
[2019-01-24] MEDS ORDERED: HYDROMORPHONE HCL 2 MG TABLET PO PRN ×2 (00:45→06:45)
[2019-01-24] MEDS ORDERED: HYDROCODONE/APAP 5-325MG TABLET PO PRN (00:45)
[2019-01-24] MEDS ORDERED: HYDROCODONE/APAP 10-325 MG TABLET PO PRN (00:45)
[2019-01-24] MEDS ORDERED: MORPHINE SULFATE 4 MG/1 ML DISP.SYRIN ONE (00:49)
[2019-01-24 00:51] VITALS: BP 154/61
--- NOTE | 2019-01-24 00:53 | NUR ---
Patient transferred to [place] via [facility] in stable condition.
--- NOTE | 2019-01-24 01:30 | NUR ---
patient received on trinh. a/ox4. no signs of acute distress. v/s stable. arm band on. belongings list completed from ER. will continue plan of care.
[2019-01-24] MEDS: IV D5 1/2 NS 1000 ML 1,000 ML IV PRN ×2 (02:06→20:16)
[2019-01-24] MEDS ORDERED: PIPERACILLIN/TAZOBACTAM/D5W 50 ML IV ONE (02:12)
--- NOTE | 2019-01-24 02:29 | NUR ---
Dr. Gonzalez contacted to clarify indication for Dilaudid. ordered to adjust to severe pain. no need to contact for sepsis reassessment result as well, since Lactic Acid is normalized per Dr. Gonzalez.
[2019-01-24] MEDS ORDERED: MORPHINE SULFATE 2 MG/1 ML DISP.SYRIN IM PRN (04:15)
[2019-01-24] MEDS: MORPHINE SULFATE 2 MG/1 ML DISP.SYRIN IV PRN ×2 (04:21→16:04)
[2019-01-24] MEDS: ONDANSETRON 4 MG/2 ML VIAL IV PRN ×4 (04:22→20:18)
--- NOTE | 2019-01-24 04:50 | NUR ---
Dr. joshi contacted for IV pain medication. morphine 1mg q4h prn ordered. Dilaudid returned to [facility] as patient is NPO status, RN Berto witness. 2 morphine IV returned back to [facility]. order was from ER, charge witness.
--- NOTE | 2019-01-24 04:53 | NUR ---
patient slept intermittently. no signs of acute distress. v/s stable. administered morphine 1mg and zofran once on my shift for c/o of pain and nausea. no vomiting on my shift. will continue to monitor and endorse care to morning nurse.
[2019-01-24 04:57] VITALS: BP 143/79
[2019-01-24] MEDS: PIPERACILLIN SODIUM/TAZOBACTAM 3.375 G in IV DEXTROSE 5% 50 ML IV SCH ×4 (05:12→23:37)
[2019-01-24] MEDS: VANCOMYCIN IV 1,000 MG in IV DEXTROSE 5% 250 ML IV SCH (06:40)
[2019-01-24] MEDS: BLOOD SUGAR DIAGNOSTIC 1 EACH STRIP VI SCH ×4 (06:41→20:20)
[2019-01-24] MEDS: PANTOPRAZOLE SODIUM 40 MG VIAL IV SCH (08:26)
[2019-01-24] MEDS: SERTRALINE HCL 50 MG TABLET PO SCH (08:26)
--- NOTE | 2019-01-24 09:37 | NUR ---
Clinical Pharmacy Note: Vancomycin Dosing per Pharmacy Subjective: Vancomycin IV to start on this 63 yo female patient for sepsis Objective: BUN 9/Scr 0.8 (01/23) WBC 18.3 (01/23) Temperature 97.9 Assessment/Plan: Patient received vanco 1gm IVPB x1 on 01/23 at 2100. Will start vancomycin 1000mg IVPB Q22hr for a predicted vancomycin steady state trough level of 16 mcg/ml. 2nd dose today at 0700.Will draw a vancomycin trough level prior to the 4th dose of vancomycin (not ordered yet). Will monitor renal function and adjust vancomycin dose, if needed, should renal function change significantly. Will follow daily.
[2019-01-24] MEDS: METHADONE HCL 10 MG TABLET PO SCH ×3 (10:33→17:22)
[2019-01-24 11:30] VITALS: BP 151/77
[2019-01-24 16:00] VITALS: BP 126/69
--- NOTE | 2019-01-24 19:30 | NUR ---
Received patient in bed AAOx4. No SOB, not in distress. IV site on R FA intact and patent w/ IVF infusing. No complaints of pain at this time. Patient still complaining of nausea, seen by Jennifer TIMMONS w/ n.o for STAT US of gallbladder. Patient remains on NPO. Safety measures observed. Call light within reach
[2019-01-24 20:00] VITALS: BP 138/82
--- NOTE | 2019-01-24 21:30 | NUR ---
IV site on RFA got infiltrated, reinserted to RAC 22g intact and patent. Patient also complaining of pain, Dilaudid 2mg IV PRN given
[2019-01-24] MEDS: HYDROMORPHONE 2 MG/1 ML DISP.SYRIN IV PRN (21:54)
--- NOTE | 2019-01-24 23:29 | NUR ---
Relayed result of US of gallbladder to Jennifer TIMMONS w/ n.o for labs in AM: LFT, Total and direct bilirubin, noted and carried out
[2019-01-25] MEDS: ONDANSETRON 4 MG/2 ML VIAL IV PRN ×4 (00:18→22:24)
--- NOTE | 2019-01-25 00:20 | NUR ---
Patient complaining of nausea, Zofran 4mg IV PRN given. Will continue to monitor
[2019-01-25] MEDS: MORPHINE SULFATE 2 MG/1 ML DISP.SYRIN IV PRN (02:34)
--- NOTE | 2019-01-25 02:35 | NUR ---
Patient complaining of abdominal pain, Morphine 1mg IV PRN given for breakthrough pain. Will continue to monitor
[2019-01-25] MEDS: VANCOMYCIN IV 1,000 MG in IV DEXTROSE 5% 250 ML IV SCH (04:05)
[2019-01-25 04:46] VITALS: BP 153/75
[2019-01-25] MEDS: PIPERACILLIN SODIUM/TAZOBACTAM 3.375 G in IV DEXTROSE 5% 50 ML IV SCH ×4 (05:54→23:52)
--- NOTE | 2019-01-25 06:21 | NUR ---
Patient slept intermittently. No SOB noted. IV site on R AC intact and patent w/ IVF infusing. No complaints of pain at this time. All needs attended. Will endorse accordingly
[2019-01-25 06:35] LABS: BASOPHILS % (AUTO) 0.5 % (0.0-2.0); EOSINOPHILS # (AUTO) 0.1 K/uL (0.0-0.7); EOSINOPHILS % (AUTO) 0.9 % (0.0-7.0); HEMATOCRIT 33.4 % (31.2-41.9); LYMPHOCYTES % (AUTO) 13.3 % (20.5-51.5); MEAN CORPUSCULAR HEMOGLOBIN 27.7 uug (24.7-32.8); MEAN CORPUSCULAR HGB CONC 33 g/dL (32.3-35.6); MEAN CORPUSCULAR VOLUME 84.6 fL (75.5-95.3); MONOCYTES # (AUTO) 0.8 K/uL (2.0-10.0); MONOCYTES % (AUTO) 10.8 % (0.0-11.0); NEUTROPHILS # (AUTO) 5.4 K/uL (1.8-8.9); NEUTROPHILS % (AUTO) 74.5 % (38.5-71.5); PLATELET COUNT (AUTO) 344 K/uL (179-408); RED BLOOD CELL COUNT(AUTO) 3.95 MIL/uL (3.63-4.92); WHITE BLOOD COUNT (AUTO) 7.3 K/uL (3.8-11.8)
[2019-01-25 06:42] LABS: CREATININE 0.7 mg/dL (0.6-1.3); POTASSIUM 3.3 mmol/L (3.5-5.1)
[2019-01-25] MEDS: HYDROMORPHONE 2 MG/1 ML DISP.SYRIN IV PRN (06:48)
[2019-01-25] MEDS: BLOOD SUGAR DIAGNOSTIC 1 EACH STRIP VI SCH ×3 (06:48→17:04)
[2019-01-25 06:57] LABS: BILIRUBIN,DIRECT 2.1 mg/dL (0.0-0.2); BILIRUBIN,TOTAL 2.7 mg/dL (0.2-1.0); MAGNESIUM 1.5 mg/dL (1.8-2.4); TOTAL PROTEIN, SERUM 6.3 g/dL (6.4-8.2)
[2019-01-25 07:45] LABS: THYROID STIMULATING HORMONE 0.335 mIU/mL (0.358-3.740)
--- NOTE | 2019-01-25 08:00 | NUR ---
Pt alert and orient x4. Pt discussed plan of care with pt regarding pain management. Pt agreeable with plan of care. Call light is within reach.
[2019-01-25] MEDS: DOCUSATE SODIUM 100 MG CAPSULE PO SCH ×2 (09:00→21:00)
[2019-01-25] MEDS: SERTRALINE HCL 50 MG TABLET PO SCH (09:00)
[2019-01-25] MEDS: PANTOPRAZOLE SODIUM 40 MG VIAL IV SCH (09:25)
[2019-01-25] MEDS: METHADONE HCL 10 MG TABLET PO SCH ×3 (09:28→17:00)
--- NOTE | 2019-01-25 10:15 | NUR ---
Clinical Pharmacy Note: Vancomycin Dosing per Pharmacy Subjective: Vancomycin IV to continue on this 63 yo female patient for sepsis Objective: BUN 3/Scr 0.7 WBC 7.3 Temperature 97.6 Assessment/Plan: Will continue same dose of vancomycin 1000mg IVPB Q22hr for today for a predicted vancomycin steady state trough level of 16 mcg/ml. 3rd dose today at 0400 (due time was 0500).Will draw a vancomycin trough level prior to the 4th dose of vancomycin ( ordered for 01/26 at 0230-RN has been informed to hold 0300 dose if vanco trough level is above 20 mcg/ml). Pharmacy shall review the level in am & adjust the hussein if needed. Will follow daily.
[2019-01-25] MEDS: IV D5 1/2 NS 1000 ML 1,000 ML IV PRN (10:37)
[2019-01-25] MEDS ORDERED: URSO300C12 PO (11:27)
[2019-01-25 11:34] VITALS: BP 154/90
[2019-01-25] MEDS ORDERED: POTASSIUM CHLORIDE 20 MEQ TAB.PRT.SR PO ONE (12:00)
[2019-01-25] MEDS: MAGNESIUM SULFATE/D5W 100 ML IV SCH ×2 (12:44→13:44)
[2019-01-25] MEDS: HYDROMORPHONE 1 MG/1 ML DISP.SYRIN IV PRN ×3 (12:58→22:28)
[2019-01-25] MEDS: POTASSIUM CHLORIDE 50 ML IV SCH ×2 (15:35→17:00)
[2019-01-25 15:48] VITALS: BP 145/81
--- NOTE | 2019-01-25 17:30 | NUR ---
Jennifer new spoke with patients primary doctor regarding MRCP for patient. PT now agreeable with MRCP.
--- NOTE | 2019-01-25 18:00 | NUR ---
Pt's pain managed with dilaudid and methadone. Pt's Nause managed with zofran and kept pt npo throughout shift. Fariba notified pt unable to do MRCP today. New orders received and carried out for labs in am.
--- NOTE | 2019-01-25 19:30 | NUR ---
Received patient in bed AAOx4. No SOB, not in distress. No IV site at this time, n.o for midline insertion, patient agreed. No complaints of pain at this time. Patient remains on NPO for MRCP w/o contrast procedure in AM. Safety measures observed. Call light within reach
[2019-01-25 20:30] VITALS: BP 135/69
--- NOTE | 2019-01-25 22:30 | NUR ---
Midline was inserted on patient's GERMAN[place] 20g. IVF restarted. Patient complaining of nausea and abdominal pain, PRN Zofran 4mg IV and PRN Dilaudid 1mg IV given. Will continue to monitor
[2019-01-25] MEDS ORDERED: LORAZEPAM 2 MG/1 ML VIAL IV PRN (23:00)
[2019-01-26] MEDS: HYDROMORPHONE 1 MG/1 ML DISP.SYRIN IV PRN ×7 (01:42→23:31)
[2019-01-26] MEDS: ONDANSETRON 4 MG/2 ML VIAL IV PRN ×5 (02:27→21:21)
[2019-01-26] MEDS: VANCOMYCIN IV 1,000 MG in IV DEXTROSE 5% 250 ML IV SCH ×2 (03:52→18:57)
[2019-01-26 05:12] VITALS: BP 153/78
[2019-01-26] MEDS: PIPERACILLIN SODIUM/TAZOBACTAM 3.375 G in IV DEXTROSE 5% 50 ML IV SCH ×4 (05:27→23:32)
--- NOTE | 2019-01-26 06:44 | NUR ---
Patient slept intermittently. No SOB noted. Still noted w/ abdominal pain, PRN Dilaudid 1mg IV given. MRI checklist done. All needs attended. Will endorse accordingly.
[2019-01-26 06:45] LABS: BASOPHILS % (AUTO) 0.5 % (0.0-2.0); EOSINOPHILS # (AUTO) 0.1 K/uL (0.0-0.7); EOSINOPHILS % (AUTO) 1.3 % (0.0-7.0); HEMATOCRIT 32.6 % (31.2-41.9); HEMOGLOBIN 11.3 g/dL (10.9-14.3); LYMPHOCYTES # (AUTO) 0.9 K/uL (20.0-40.0); LYMPHOCYTES % (AUTO) 12.2 % (20.5-51.5); MEAN CORPUSCULAR HEMOGLOBIN 29.3 uug (24.7-32.8); MEAN CORPUSCULAR HGB CONC 35 g/dL (32.3-35.6); MEAN CORPUSCULAR VOLUME 84.6 fL (75.5-95.3); MONOCYTES # (AUTO) 0.7 K/uL (2.0-10.0); MONOCYTES % (AUTO) 9.8 % (0.0-11.0); NEUTROPHILS # (AUTO) 5.6 K/uL (1.8-8.9); NEUTROPHILS % (AUTO) 76.2 % (38.5-71.5); PLATELET COUNT (AUTO) 442 K/uL (179-408); RED BLOOD CELL COUNT(AUTO) 3.85 MIL/uL (3.63-4.92); WHITE BLOOD COUNT (AUTO) 7.3 K/uL (3.8-11.8)
[2019-01-26 06:54] LABS: CREATININE 0.7 mg/dL (0.6-1.3); MAGNESIUM 2.1 mg/dL (1.8-2.4); PHOSPHOROUS 3.6 mg/dL (2.5-4.9); POTASSIUM 3.4 mmol/L (3.5-5.1)
[2019-01-26 06:57] LABS: BILIRUBIN,DIRECT 1.7 mg/dL (0.0-0.2); BILIRUBIN,TOTAL 2.3 mg/dL (0.2-1.0); TOTAL PROTEIN, SERUM 6.6 g/dL (6.4-8.2)
--- NOTE | 2019-01-26 07:30 | NUR ---
Patient received in bed with complaints of pain and nausea ; patient requested prn Zofran and Dilaudid. patient given medications as requested. Patient with stable vital signs.
[2019-01-26] MEDS: PANTOPRAZOLE SODIUM 40 MG VIAL IV SCH (08:41)
[2019-01-26] MEDS: METHADONE HCL 10 MG TABLET PO SCH ×3 (08:42→17:00)
[2019-01-26] MEDS: DOCUSATE SODIUM 100 MG CAPSULE PO SCH ×3 (08:42→20:32)
[2019-01-26] MEDS: SERTRALINE HCL 50 MG TABLET PO SCH (08:42)
[2019-01-26] MEDS ORDERED: POTASSIUM CHLORIDE 20 MEQ TAB.PRT.SR PO ONE (09:00)
--- NOTE | 2019-01-26 10:00 | NUR ---
Patient left to [facility] for MRI of abdomen ; patient had episode of vomiting before leaving to hospital and also requested PRN Ativan for MRI. Patient given medication as requested.
[2019-01-26 12:21] VITALS: BP 157/83
--- NOTE | 2019-01-26 12:50 | NUR ---
Patient returned form MRI; Patient in stable conditon with stable vital signs. no signs of distress.
--- NOTE | 2019-01-26 14:24 | NUR ---
Clinical Pharmacy Note: Vancomycin Dosing per Pharmacy Subjective: Vancomycin IV to continue on this 63 yo female patient for sepsis Objective: BUN 2/Scr 0.7 WBC 7.3 Temperature 97.6 Trough early am today at 0230: 6.6 Assessment/Plan: Based on trough, adjusted regimen to vancomycin 1gm q14hr, second dose today at 1800, for new estimated trough of 15.2. Will order trough before 4th scheduled dose (not ordered yet). Will follow
[2019-01-26 16:00] VITALS: BP 144/82
[2019-01-26] MEDS: IV D5 1/2 NS 1000 ML 1,000 ML IV PRN (16:29)
--- NOTE | 2019-01-26 17:00 | NUR ---
Patient MRI results relayed to Dr. Spaulding per primary MD request. Orders received and carried out.
--- NOTE | 2019-01-26 18:55 | NUR ---
Patient calm and comfortable with no signs of distress. Medication compliant
--- NOTE | 2019-01-26 19:30 | NUR ---
Received patient in bed asleep but arousable, AAOx4. No SOB noted, not in distress. GER[place] midline intact and patent w/ IVF infusing. Patient on clear liquids diet. Still complaining of abdominal pain and nausea, will give PRN meds. Safety measures observed. Call light within reach
[2019-01-26 20:00] VITALS: BP 146/77
[2019-01-26] MEDS ORDERED: MIRALAX 17 GM POWD.PACK PO PRN (20:45)
[2019-01-27] MEDS: ONDANSETRON 4 MG/2 ML VIAL IV PRN ×4 (01:18→14:37)
[2019-01-27] MEDS: HYDROMORPHONE 1 MG/1 ML DISP.SYRIN IV PRN ×5 (02:42→14:37)
[2019-01-27 04:00] VITALS: BP 152/79
[2019-01-27 04:06] VITALS: BP 152/79
[2019-01-27] MEDS: PIPERACILLIN SODIUM/TAZOBACTAM 3.375 G in IV DEXTROSE 5% 50 ML IV SCH ×2 (05:30→12:46)
--- NOTE | 2019-01-27 06:17 | NUR ---
Patient slept intermittently. No SOB noted. Patient still complaining of abdominal pain and nausea, PRN Dilaudid 1mg IV given and PRN Zofran 4mg IV given. Patient able to tolerate clear liquid diet. All needs attended. Will endorse accordingly.
[2019-01-27 06:36] LABS: BASOPHILS % (AUTO) 0.4 % (0.0-2.0); EOSINOPHILS # (AUTO) 0.1 K/uL (0.0-0.7); EOSINOPHILS % (AUTO) 1.7 % (0.0-7.0); HEMATOCRIT 31.7 % (31.2-41.9); HEMOGLOBIN 10.9 g/dL (10.9-14.3); LYMPHOCYTES # (AUTO) 1.3 K/uL (20.0-40.0); LYMPHOCYTES % (AUTO) 19.3 % (20.5-51.5); MEAN CORPUSCULAR HEMOGLOBIN 29.3 uug (24.7-32.8); MEAN CORPUSCULAR HGB CONC 34 g/dL (32.3-35.6); MEAN CORPUSCULAR VOLUME 84.9 fL (75.5-95.3); MONOCYTES # (AUTO) 0.8 K/uL (2.0-10.0); MONOCYTES % (AUTO) 12.2 % (0.0-11.0); NEUTROPHILS # (AUTO) 4.6 K/uL (1.8-8.9); NEUTROPHILS % (AUTO) 66.4 % (38.5-71.5); PLATELET COUNT (AUTO) 482 K/uL (179-408); RED BLOOD CELL COUNT(AUTO) 3.74 MIL/uL (3.63-4.92); WHITE BLOOD COUNT (AUTO) 6.9 K/uL (3.8-11.8)
[2019-01-27 06:38] LABS: CREATININE 0.7 mg/dL (0.6-1.3); MAGNESIUM 1.7 mg/dL (1.8-2.4); PHOSPHOROUS 3.7 mg/dL (2.5-4.9)
[2019-01-27 06:58] LABS: POTASSIUM 2.6 mmol/L (3.5-5.1)
--- NOTE | 2019-01-27 07:00 | NUR ---
Received critical lab result for K-2.6, Dr. Diaz notified. Awaiting for response. Will endorse to oncoming shift
--- NOTE | 2019-01-27 07:15 | NUR ---
RECEIVED PATIENT SLEEPING IN BED. NO ACUTE DISTRESS NOTED AT THIS TIME. BED IN LOWEST POSITION, CALL LIGHT WITHIN REACH. SIDE RAILS UP X2. BED ALARM ON. WILL CONTINUE TO MONITOR.
[2019-01-27] MEDS: PANTOPRAZOLE SODIUM 40 MG VIAL IV SCH (08:48)
[2019-01-27] MEDS: VANCOMYCIN IV 1,000 MG in IV DEXTROSE 5% 250 ML IV SCH (08:48)
[2019-01-27] MEDS: SERTRALINE HCL 50 MG TABLET PO SCH (08:49)
[2019-01-27] MEDS: DOCUSATE SODIUM 100 MG CAPSULE PO SCH (08:49)
[2019-01-27] MEDS: METHADONE HCL 10 MG TABLET PO SCH ×2 (08:50→13:00)
--- NOTE | 2019-01-27 10:30 | NUR ---
Clinical Pharmacy Note: Vancomycin Dosing per Pharmacy Subjective: Vancomycin IV to continue on this 63 yo female patient for sepsis Objective: BUN 1/Scr 0.7 WBC 6.9 Temperature 98 Trough pending tonight at 2130 Assessment/Plan: Will continue vancomycin 1gm q14hr, third dose today at 0800, for new estimated trough of 15.2. Will order trough before 4th scheduled dose (due tonight 2130). RN endorsed to hold dose if Tr >20. Will check in am and adjust as needed. Will follow
[2019-01-27] MEDS: POTASSIUM CHLORIDE 50 ML IV SCH ×2 (10:34→11:34)
[2019-01-27 12:15] VITALS: BP 149/85
[2019-01-27] MEDS: IV D5 1/2 NS 1000 ML 1,000 ML IV PRN (15:04)
[2019-01-27 15:43] VITALS: BP 150/90
--- NOTE | 2019-01-27 17:12 | NUR ---
DR MORROW INFORMED ABOUT PATIENT LEAVING AMA, NO NEW ORDERS.
--- NOTE | 2019-01-27 17:13 | NUR ---
PATIENT LEFT AMA WITH . PATIENT UNDERSTANDS THE RISKS. PATIENT SIGNED AMA FORM AND I REVIEWED INSTRUCTIONS WITH PATINET AND . PATIENT AND VERBALIZE UNDERSTANDING.
== END 2019-01-27 17:20 | disposition left against medical advice (07) | DRG 871 ==
LOC: ER 19:19 → UNDOADMIN 22:18 → MEDSURG3 22:18
PROVIDERS: ADMIT Registered Nurse
PROC: 05H933Z Insertion of Infusion Device into Right Brachial Vein, Percutaneous Approach (ICD-10-PCS; principal; 2019-01-25)
DX: A41.9 Sepsis, unspecified organism (principal); E43 Unspecified severe protein-calorie malnutrition; K80.62 Calculus of gallbladder and bile duct with acute cholecystitis without obstruction; C22.1 Intrahepatic bile duct carcinoma; E87.1 Hypo-osmolality and hyponatremia; E87.2 Acidosis; R91.1 Solitary pulmonary nodule; K21.9 Gastro-esophageal reflux disease without esophagitis; Z96.652 Presence of left artificial knee joint; Z91.040 Latex allergy status; Z80.3 Family history of malignant neoplasm of breast; Z80.1 Family history of malignant neoplasm of trachea, bronchus and lung; Z83.3 Family history of diabetes mellitus; N20.0 Calculus of kidney; K86.89 Other specified diseases of pancreas; M51.36 Other intervertebral disc degeneration, lumbar region; K42.9 Umbilical hernia without obstruction or gangrene; I70.0 Atherosclerosis of aorta; E01.0 Iodine-deficiency related diffuse (endemic) goiter; E66.9 Obesity, unspecified; R11.2 Nausea with vomiting, unspecified; T45.1X5A Adverse effect of antineoplastic and immunosuppressive drugs, initial encounter; Y92.019 Unspecified place in single-family (private) house as the place of occurrence of the external cause; E83.42 Hypomagnesemia; E78.5 Hyperlipidemia, unspecified; Z68.22 Body mass index [BMI] 22.0-22.9, adult; K22.9 Disease of esophagus, unspecified; G89.29 Other chronic pain; D89.9 Disorder involving the immune mechanism, unspecified; Z79.899 Other long term (current) drug therapy; E11.9 Type 2 diabetes mellitus without complications; E87.6 Hypokalemia; I10 Essential (primary) hypertension; R59.1 Generalized enlarged lymph nodes
CPT/HCPCS: 36415; 70030-TC; 71045; 71250; 74181; 83605; 83690; 83735; 84100; 84443; 85025; 86403; 87040; 87070; 87086; 93005; A4663; C9113; G0378; J1170; J1815; J2060; J2270; J2405; J2543; J3370; J3475; J3480; J3490; J7030; J7060